=== PATIENT | female | born 1965 | race Caucasian/White ===

== ENCOUNTER 2025-06-11 15:25 | Outpatient (CLI) | payer MEDICAID ==
--- NOTE | 2025-06-11 17:03 | RADIOLOGY REPORT ---
EXAM: MR MRI LUMBAR SPINE CLINICAL HISTORY: LOW BACK PAIN,SPONDYLOSIS WITHOUT MYELOPATHY OR RADICULOPATHY,LUMBAR REGION COMPARISON: None Technique: MRI of the lumbar spine was performed without contrast. Findings: Vertebral body height is maintained. Vertebral alignment is anatomic. Degenerative endplate changes. The conus medullaris is normal in position and signal intensity. L1-L2: No significant spinal canal or foraminal stenosis. L2-L3: Disc bulge with facet arthropathy. No significant spinal canal or foraminal stenosis. L3-L4: Disc bulge with facet arthropathy. No significant spinal canal or foraminal stenosis. L4-L5: Disc bulge with facet arthropathy and ligamentum flavum thickening. Moderate right and mild left foraminal stenosis. Moderate canal stenosis. L5-S1: No significant spinal canal or foraminal stenosis. No mass is identified within the lumbar spinal canal or paravertebral soft tissues. IMPRESSION: Multilevel degenerative changes of the lumbar spine as described that is most pronounced at L4-L5 where there is moderate right and mild left foraminal stenosis and moderate canal stenosis.
== END 2025-06-11 23:59 | disposition home or self-care (01) ==
LOC: MRI 15:25
PROVIDERS: ATTEND Anesthesiology Pain Medicine
DX: M51.369 Other intervertebral disc degeneration, lumbar region without mention of lumbar back pain or lower extremity pain (principal); M47.816 Spondylosis without myelopathy or radiculopathy, lumbar region; M54.50 Low back pain, unspecified; M48.061 Spinal stenosis, lumbar region without neurogenic claudication; M54.51 Vertebrogenic low back pain; E66.812 Obesity, class 2; N18.4 Chronic kidney disease, stage 4 (severe); E11.22 Type 2 diabetes mellitus with diabetic chronic kidney disease
CPT/HCPCS: 72148